=== PATIENT | female | born 1935 | race Caucasian/White ===

== ENCOUNTER 2021-03-01 13:58 | Outpatient (RCR) | payer MEDICARE, SELFPAY ==
[2021-03-01] MEDS: ACETAMINOPHEN 325 MG TABLET 650 MG PO (14:32)
[2021-03-01] MEDS: FAMOTIDINE 20 MG TABLET PO (14:33)
[2021-03-01] MEDS: diphenhydrAMINE HCl CAP 25 MG CAPSULE PO (14:33)
[2021-03-01 14:39] VITALS: BP 106/38; PULSE 62; RESP 20; TEMP 36.3; O2SAT 99
[2021-03-01 15:27] VITALS: BP 128/37
== END 2021-03-01 16:00 ==
LOC: AMCINF 13:58
PROVIDERS: PCP Family Medicine; Visit Provider Internal Medicine Hematology & Oncology
DX: U07.1 COVID-19 (principal); I10 Essential (primary) hypertension; I25.10 Atherosclerotic heart disease of native coronary artery without angina pectoris; N18.9 Chronic kidney disease, unspecified
CPT/HCPCS: A9270; M0243